=== PATIENT | female | born 1985 | race Caucasian/White ===

== ENCOUNTER 2016-11-10 19:25 | Emergency (ER) | payer OTHER ==
[~2016-11-10] VITALS: Ht 149.9 cm; Wt 77.3 kg
[2016-11-10] MEDS ORDERED: LORazepam 2 MG/ML (ATIVAN) 1 ML VIAL IV ONE (19:35)
[2016-11-10] MEDS ORDERED: ASPIRIN 81 MG CHEW (LOW-DOSE) PO ONE (19:35)
[2016-11-10] MEDS ORDERED: KETOROLAC 30 MG/ML (TORADOL) 1 ML VIAL IV ONE (19:35)
[2016-11-10] MEDS ORDERED: SODIUM CHLORIDE FLUSH 3 ML SYR IV PRN (19:35)
[2016-11-10] MEDS: SODIUM CHLORIDE FLUSH 10 ML SYR IV PRN ×2 (20:02→20:53)
[2016-11-10 20:11] LABS: BASOPHILS % (AUTO) 0 % (0-2); EOSINOPHILS # (AUTO) 0.2 10^3uL; EOSINOPHILS % (AUTO) 2 % (0-4); LYMPHOCYTES # (AUTO) 2.4 X10^3; MEAN CORPUSCULAR HGB CONC 33.7 g/dL (31.0-37.0); MEAN CORPUSCULAR VOLUME 92 FL (80-100); MONOCYTES % (AUTO) 10 % (3-11); NEUTROPHILS # (AUTO) 6.4 X10^3; NEUTROPHILS % (AUTO) 64 % (51-67); PLATELET COUNT 249 10^3uL (150-450)
[2016-11-10 20:28] LABS: ALBUMIN 4.2 g/dL (3.4-5.0); ALKALINE PHOSPHATASE 92 U/L (38-126); ANION GAP 14.3 MEQ/L (3-15); BUN/CREATININE RATIO 19 (10-20); CALCULATED IONIZED CALCIUM 4.1 mg/dL (3.8-4.6); CREATINE KINASE 160 U/L (30-135); TOTAL PROTEIN 7.3 g/dL (6.4-8.5)
[2016-11-10] MEDS ORDERED: HYDROmorphone 1 MG/ML (DILAUDID) SYRINGE IV ONE (20:45)
[2016-11-10 20:54] LABS: BILIRUBIN,URINE Negative (Negative); CLARITY,URINE Cloudy; COLOR,URINE Yellow; GLUCOSE, URINE (UA) Negative (Negative); LEUKOCYTE ESTERASE ,URINE Negative (Negative); PH,URINE 8.5 (5.0 - 8.0); UROBILINOGEN,URINE 0.2 mg/dL (0.2-1.0)
[2016-11-10 21:10] LABS: AMPHETAMINE SCREEN, URINE Negative (Negative); CANNABINOID SCREEN, URINE Negative (Negative); METHAMPHETAMINE SCREEN URINE S NEGATIVE (NEGATIVE); OPIATE SCREEN URINE Negative (Negative); PROPOXYPHENE STAT NEGATIVE (NEGATIVE)
[2016-11-10] MEDS ORDERED: HYDR-2651 PO (21:30)
[2016-11-10 21:55] VITALS: BP 120/73
--- NOTE | 2016-11-11 07:20 | Diagnostic Imaging Report ---
CLINICAL INDICATION: Patient with chest pain. EXAM: Portable chest x-ray upright view. COMPARISONS: None. FINDINGS: Lungs/pleura: Lungs are clear. There is no pneumothorax. There is no pleural effusion. Mediastinum: Unremarkable. Pulmonary vasculature: Unremarkable. Heart: Unremarkable. Bones/extrathoracic soft tissue: Unremarkable. IMPRESSION: There is no radiographic evidence of acute cardiopulmonary process. Dictated by: Dictated on workstation # [id number]
== END 2016-11-10 22:01 | disposition home or self-care (01) ==
LOC: ED 19:31
DX: M94.0 Chondrocostal junction syndrome [Tietze] (principal); F41.9 Anxiety disorder, unspecified; R07.9 Chest pain, unspecified
CPT/HCPCS: 36415; 71010; 80053; 80307; 81003; 82550; 82553; 84484; 85025; 85610; 85730; 93005; 96374; 96375; 99285; J1170; J1885; J2060; 93010; 99284